=== PATIENT | female | born 1990 | race Two or more races ===

== ENCOUNTER 2024-05-03 06:23 | Day surgery (SDC) | payer OTHER ==
[2024-04-27 09:05] LABS: URINE APPEARANCE Clear; URINE BILIRRUBIN Negative (NEGATIVE); URINE BLOOD Negative; URINE COLOR Yellow; URINE GLUCOSE Negative (NEGATIVE); URINE KETONE Negative (NEGATIVE); URINE LEUKOCYTE Negative; URINE NITRATE Negative; URINE PROTEIN Negative (NEGATIVE); URINE UROBILINOGEN 0.2 E.U./dl
[2024-04-27 09:11] LABS: URINE BACTERIA 205.3 uL (0.0-1933); URINE EPITHELIAL CELLS 8.4 uL (0.0-38.8); URINE RBC 1.5 uL (0.0-20.8); URINE WBC 2.3 uL (0.0-23.2)
[2024-04-27 09:14] LABS: HEMATOCRIT 38.1 % (36.0-45.00); HEMOGLOBIN 12.6 g/dL (12.0-15.00); MEAN CELL VOLUME 83.6 fL (80.00-100.00); MEAN CORPUSCULAR HEMOGLOBIN 27.8 pg (27.00-32.0); MEAN CORPUSCULAR HGB CONC 33.2 g/dl (32.0-36.0); PLATELET COUNT 189 K/uL (150-450); RED BLOOD COUNT 4.55 M/uL (4.00-6.00); RED CELL DISTRIBUTION WIDTH 16.8 % (11.5-14.5)
[2024-04-27 09:30] VITALS: BP 111/62
[2024-04-27 09:32] LABS: INR 1.03; PARTIAL THROMBOPLASTIN TIME 25.6 SECONDS (22.0-34.0); PROTHROMBIN TIME 11.2 SECONDS (9.0-11.5)
[2024-04-27 10:07] LABS: ALBUMIN 3.8 gm/dL (3.4-5.0); BILIRUBIN TOTAL 0.61 mg/dL (0.3-1.2); CALCIUM 8.9 mg/dL (8.5-10.1); CREATININE SERUM 0.74 mg/dL (0.55-1.02); GFR 89.31; GLOBULINA 3.4 G/DL (2.4-3.5); POTASSIUM 5.03 mEq/L (3.5-5.1); TOTAL PROTEIN 7.2 gm/dL (6.4-8.2); TSH 0.9 uIU/mL (0.358-3.74)
[~2024-05-03] VITALS: Ht 162.6 cm; Wt 74.8 kg
[~2024-05-03 06:23] MED LIST: ZYRTEC10 M3 PO
[2024-05-03] MEDS ORDERED: POVIDONE-IODINE 118 ML BOTT TP ONE (10:30)
[2024-05-03] MEDS ORDERED: CEFOXITIN SODIUM 2,000 MG in 0.9 % SODIUM CHLORIDE 100 ML IV ONE (10:30)
[2024-05-03] MEDS ORDERED: MORGIDOX100 MG PO (10:53)
[2024-05-03] MEDS ORDERED: NAPR500T14 PO (10:53)
[2024-05-03] MEDS ORDERED: PROMETHAZINE HCL 50 MG/ML AMPUL IM ONE (11:00)
[2024-05-03] MEDS ORDERED: MORPHINE SULFATE 4 MG/ML VIAL IV PRN (11:00)
== END 2024-05-03 12:35 | disposition home or self-care (01) ==
LOC: CIR.AMB 06:23
PROVIDERS: ATTEND Obstetrics & Gynecology
DX: D25.0 Submucous leiomyoma of uterus (principal); N84.0 Polyp of corpus uteri; N93.8 Other specified abnormal uterine and vaginal bleeding

== ENCOUNTER 2024-11-01 11:12 | Outpatient (CLI) | payer OTHER ==
[~2024-11-01 11:12] MED LIST changes: +MORGIDOX100 MG PO; +NAPR500T14 PO
[2024-11-01 12:42] LABS: HEMATOCRIT 39.2 % (36.0-45.00); HEMOGLOBIN 12.6 g/dL (12.0-15.00); MEAN CORPUSCULAR HEMOGLOBIN 28.1 pg (27.00-32.0); MEAN CORPUSCULAR HGB CONC 32.3 g/dl (32.0-36.0); PLATELET COUNT 186 K/uL (150-450); RED BLOOD COUNT 4.51 M/uL (4.00-6.00); RED CELL DISTRIBUTION WIDTH 14.3 % (11.5-14.5)
[2024-11-01 12:47] LABS: INR 1.09; PARTIAL THROMBOPLASTIN TIME 26.5 SECONDS (22.0-34.0); PROTHROMBIN TIME 11.8 SECONDS (9.0-11.5)
[2024-11-01 13:06] LABS: COL EPI 123 SECONDS (82-175)
[2024-11-01 13:27] LABS: MANUAL PLATELET COUNT 336
[2024-11-01 13:28] LABS: PLATELET ESTIMATE NORMAL (NORMAL)
[2024-11-01 14:21] LABS: BILIRUBIN TOTAL 0.68 mg/dL (0.3-1.2); CALCIUM 9.4 mg/dL (8.5-10.1); CREATININE SERUM 0.92 mg/dL (0.55-1.02); FERRITIN 15.4 NG/ML (8-252); GFR 69.07; GLOBULINA 3.7 G/DL (2.4-3.5); POTASSIUM 4.21 mEq/L (3.5-5.1); T4 FREE 1.1 NG/ML (0.76-1.46); TOTAL PROTEIN 7.7 gm/dL (6.4-8.2); TSH 0.964 uIU/mL (0.358-3.74)
[2024-11-02 09:59] LABS: FOLIC ACID 15.58 ng/ml (4.78-20); VITAMIN D3 25 HYDROXY 28.3 ng/ml (30-120)
[2024-11-05 13:06] LABS: PARIETAL CELL ANTIBODIES 1.3 Units (0.0-20.0)
[2024-11-05 15:10] LABS: INTRINSIC FACTOR BLOCKING AB 1.1 AU/mL (0.0-1.1)
[2024-11-06 01:05] LABS: VITAMIN K 0.14 ng/mL (0.10-2.20)
== END 2024-11-01 11:17 | disposition home or self-care (01) ==
LOC: LAB 11:12
PROVIDERS: ATTEND Internal Medicine Hematology & Oncology
DX: D72.818 Other decreased white blood cell count (principal); D69.6 Thrombocytopenia, unspecified; Z91.010 Allergy to peanuts; Z91.012 Allergy to eggs; Z91.013 Allergy to seafood; Z91.018 Allergy to other foods; D50.8 Other iron deficiency anemias; I10 Essential (primary) hypertension; R74.02 Elevation of levels of lactic acid dehydrogenase [LDH]; K76.89 Other specified diseases of liver; D51.1 Vitamin B12 deficiency anemia due to selective vitamin B12 malabsorption with proteinuria; D51.0 Vitamin B12 deficiency anemia due to intrinsic factor deficiency; E03.8 Other specified hypothyroidism; E06.3 Autoimmune thyroiditis; D68.8 Other specified coagulation defects; E55.9 Vitamin D deficiency, unspecified

== ENCOUNTER 2024-11-01 12:34 | Outpatient (CLI) | payer OTHER | END 2024-11-01 12:40 | disposition home or self-care (01) | LOC: SONOGRAMA 12:34 | PROVIDERS: ATTEND Internal Medicine Hematology & Oncology | DX: D72.818 Other decreased white blood cell count (principal); D69.6 Thrombocytopenia, unspecified; Z91.010 Allergy to peanuts; Z91.012 Allergy to eggs; Z91.013 Allergy to seafood; Z91.018 Allergy to other foods ==